=== PATIENT | female | born 1970 | race Caucasian/White ===

== ENCOUNTER 2019-10-22 19:14 | Emergency (ER) | payer BC ==
[2019-10-22] MEDS ORDERED: Propofol 200 MG/20 ML SDV IV ONE (19:15)
[2019-10-22] MEDS ORDERED: traMADol 50 MG Tab PO ONE (19:15)
--- NOTE | 2019-10-22 19:37 | EDM.PDOC ---
ED HPI GENERAL MEDICAL PROBLEM - General Chief Complaint: Upper Extremity Injury/Pain Stated Complaint: LEFT ARM IS BROKE Time Seen by Provider: 10/22/19 19:35 Source of Information: Reports: Patient, RN, RN Notes Reviewed History Limitations: Reports: No Limitations - History of Present Illness INITIAL COMMENTS - FREE TEXT/NARRATIVE: Patient presents to ER with complaint of left elbow pain. States she was helping load a boat on a trailer when she slipped on the [place] on the boat ramp injuring her left elbow. Patient states this happened just prior to arrival. Rates pain 12/08. Onset: Today, Sudden left elbow Pain Score (Numeric/FACES): 10 - Related Data Allergies Allergy/AdvReac Type Severity Reaction Status Date / Time No Known Allergies Allergy Verified 10/22/19 19:35 Home Meds: Home Meds . [Unable to Verify Home Med List] 10/22/19 [History] Review of Systems - Review of Systems Review Of Systems: Comprehensive ROS is negative, except as noted in HPI. ED EXAM, GENERAL - Physical Exam Exam: See Below Exam Limited By: No Limitations General Appearance: Alert, WD/WN, Moderate Distress Eye Exam: Bilateral Eye: EOMI, Normal Inspection Ears: Normal External Exam, Hearing Grossly Normal Nose: Normal Inspection Throat/Mouth: Normal Inspection, Normal Voice, No Airway Compromise Head: Atraumatic, Normocephalic Neck: Normal Inspection, Supple, Non-Tender, Full Range of Motion Respiratory/Chest: No Respiratory Distress, Lungs Clear, Normal Breath Sounds, No Accessory Muscle Use, Chest Non-Tender Cardiovascular: Normal Peripheral Pulses, Regular Rate, Rhythm, No Edema, No Gallop, No JVD, No Murmur, No Rub Peripheral Pulses: 2+: Radial (L), Radial (R) GI/Abdominal: Normal Bowel Sounds, Soft, Non-Tender (Female) Exam: Deferred Rectal (Female) Exam: Deferred Back Exam: Normal Inspection, Full Range of Motion, NT Extremities: Joint Swelling (left elbow), Arm Pain (left elbow), Limited Range of Motion (left elbow) Neurological: Alert, Oriented, CN II-XII Intact, Normal Cognition, Normal Gait, Normal Reflexes, No Motor/Sensory Deficits Psychiatric: Normal Affect, Normal Mood, Anxious, Tearful Skin Exam: Warm, Dry, Intact, Normal Color, No Rash, Ecchymosis (left elbow) Lymphatic: No Adenopathy ED TRAUMA EXTREMITY PROCEDURES - Joint Reduction Left Elbow Sedation: Conscious Sedation Pre-Procedure NV Status: Normal Post-Procedure NV Status: Normal Technique: Traction/Counter Traction Number of Attempts: 1 Post-Reduction Imaging: Completely Reduced, Acceptably Reduced Joint Reduction Complications: No - Splinting Left Upper Extremity Splint Site: Left arm Pre-Procedure NV Status: Normal Post-Procedure NV Status: Normal Splint Material: Fiberglass Splint Design: Volar Applied & Form Fitted By: Provider, Nurse Provider Post-Splint Application NV Check: NV Status Normal, Good Position Complications: No Course - Vital Signs Last Recorded V/S: Last Vital Signs Temp 97.3 F 10/22/19 19:27 Pulse 67 10/22/19 19:27 Resp 20 10/22/19 19:27 BP 98/75 10/22/19 19:27 Pulse Ox 100 10/22/19 19:27 - Orders/Labs/Meds Meds: Medications Discontinued Medications Generic Name Dose Route Start Last Admin Trade Name Jose PRN Reason Stop Dose Admin Fentanyl 50 mcg 10/22/19 19:53 Sublimaze IVPUSH 10/22/19 19:54 ONETIME ONE Hydromorphone HCl 0.5 mg 10/22/19 21:02 10/22/19 21:07 Dilaudid IVPUSH 10/22/19 21:03 0.5 mg ONETIME ONE Administration Hydromorphone HCl Confirm 10/22/19 21:04 Dilaudid Administered 10/22/19 21:05 Dose 0.5 mg .ROUTE .STK-MED ONE Morphine Sulfate 4 mg 10/22/19 19:55 10/22/19 20:03 Morphine IM 10/22/19 19:56 4 mg ONETIME ONE Administration Tramadol HCl Confirm 10/22/19 21:33 10/22/19 22:48 Ultram Administered 10/22/19 21:34 Not Given Dose 100 mg .ROUTE .STK-MED ONE - Radiology Interpretation Free Text/Narrative:: Left elbow xray: PROCEDURE INFORMATION: Exam: XR Left Elbow Exam date and time: 10/22/2019 8:13 PM Age: 49 years old Clinical indication: Other: Fall/pain; Additional info: Slipped, injured left elbow, deformity TECHNIQUE: Imaging protocol: XR Left elbow. Views: 1 or 2 views. COMPARISON: No relevant prior studies available. FINDINGS: Bones/joints: Complete posterior dislocation of radius and ulna from distal humerus. Some small bone fragments are seen in the olecranon on fossa region which may represent some minor chip or avulsion fractures. Soft tissues: Mild soft tissue swelling. IMPRESSION: 1. Complete dislocation posteriorly of the left radius and ulna from the humerus. 2. Several small calcified type fragments are seen along the olecranon fossa which may represent minor chip or avulsion fractures. 3. Mild soft tissue swelling. Thank you for allowing us to participate in the care of your patient. Dictated and Authenticated by: Agustin Edmonds MD 10/22/2019 8:26 PM Central Time ([place] & [place]) POSt Reduction left elbow xray: PROCEDURE INFORMATION: Exam: XR Left Elbow Exam date and time: 10/22/2019 9:39 PM Age: 49 years old Clinical indication: Other: Post reduction TECHNIQUE: Imaging protocol: XR Left elbow. Views: 1 or 2 views. COMPARISON: CR Elbow Min 3V Lt 10/22/2019 8:13 PM FINDINGS: Bones/joints: Post reduction lateral view showing what appears to be alignment of the ulna, radius, and distal humerus. There are some bone fragments seen anterior to the humerus and adjacent to the radial neck on the lateral view. The source for these fracture fragments is indeterminate based on this single view. Additional imaging of the elbow is recommended. Plain film ve rsus CT should be considered. Fat pad elevation consistent with mild hemarthrosis. Soft tissues: Soft tissue swelling. IMPRESSION: 1. Post reduction lateral view showing aligned ulna, radius, and distal humerus. 2. Small fracture fragments seen anteriorly adjacent to the radial neck and anterior to the humeral epicondyles. Source for the small fracture fragments is indeterminate based on this single view. Additional imaging of the elbow recommended. CT may be warranted versus additional plain films. 3. Soft tissue swelling and minor hemarthrosis. Thank you for allowing us to participate in the care of your patient. Dictated and Authenticated by: Agustin Edmonds MD 10/22/2019 9:51 PM Central Time ([place] & [place]) See rad report Departure - Departure Time of Disposition: 22:23 Disposition: Home, Self-Care 01 Condition: Fair Clinical Impression: Fragmented bone Dislocation, elbow, posterior Qualifiers: Encounter type: initial encounter Laterality: left Qualified Code(s): S53.125A - Posterior dislocation of left ulnohumeral joint, initial encounter - Discharge Information *PRESCRIPTION DRUG MONITORING PROGRAM REVIEWED*: No *COPY OF PRESCRIPTION DRUG MONITORING REPORT IN PATIENT JOANN: No Instructions: How To Use a Sling, [id number], Elbow Dislocation, [id number] Referrals: PCP,None [Primary Care Provider] - Forms: ED Department Discharge Additional Instructions: Follow-up with Ortho at [facility] in [facility] Call [facility] right away tomorrow morning to make an appointment with Ortho. Tell them you dislocated your elbow and were seen in the ER over the weekend and were to follow-up with Ortho. Take the CD with images with you May use Tylenol and/or ibuprofen as directed for pain Rx: Tramadol May use ice to the area as tolerated Use a pillow under the arm as tolerated Sepsis Event Note (ED) - Evaluation Sepsis Screening Result: No Definite Risk - Focused Exam Vital Signs: Vital Signs Temp Pulse Resp BP Pulse Ox 10/22/19 19:27 97.3 F 67 20 98/75 100
[2019-10-22] MEDS ORDERED: fentaNYL 100 MCG/2 ML SDV IVPUSH ONE (19:53)
[2019-10-22] MEDS ORDERED: Morphine 2 MG/ML SYRINGE IM ONE (19:55)
--- NOTE | 2019-10-22 20:27 | CR ---
PROCEDURE INFORMATION: Exam: XR Left Elbow Exam date and time: 10/22/2019 8:13 PM Age: 49 years old Clinical indication: Other: Fall/pain; Additional info: Slipped, injured left elbow, deformity TECHNIQUE: Imaging protocol: XR Left elbow. Views: 1 or 2 views. COMPARISON: No relevant prior studies available. FINDINGS: Bones/joints: Complete posterior dislocation of radius and ulna from distal humerus. Some small bone fragments are seen in the olecranon on fossa region which may represent some minor chip or avulsion fractures. Soft tissues: Mild soft tissue swelling. IMPRESSION: 1. Complete dislocation posteriorly of the left radius and ulna from the humerus. 2. Several small calcified type fragments are seen along the olecranon fossa which may represent minor chip or avulsion fractures. 3. Mild soft tissue swelling.
[2019-10-22] MEDS ORDERED: HYDROmorphone 0.5 MG/0.5 ML Syringe IVPUSH ONE (21:02)
[2019-10-22] MEDS ORDERED: HYDROmorphone 0.5 MG/0.5 ML Syringe ONE (21:04)
[2019-10-22] MEDS ORDERED: traMADol 50 MG Tab ONE (21:33)
--- NOTE | 2019-10-22 21:51 | CR ---
PROCEDURE INFORMATION: Exam: XR Left Elbow Exam date and time: 10/22/2019 9:39 PM Age: 49 years old Clinical indication: Other: Post reduction TECHNIQUE: Imaging protocol: XR Left elbow. Views: 1 or 2 views. COMPARISON: CR Elbow Min 3V Lt 10/22/2019 8:13 PM FINDINGS: Bones/joints: Post reduction lateral view showing what appears to be alignment of the ulna, radius, and distal humerus. There are some bone fragments seen anterior to the humerus and adjacent to the radial neck on the lateral view. The source for these fracture fragments is indeterminate based on this single view. Additional imaging of the elbow is recommended. Plain film versus CT should be considered. Fat pad elevation consistent with mild hemarthrosis. Soft tissues: Soft tissue swelling. IMPRESSION: 1. Post reduction lateral view showing aligned ulna, radius, and distal humerus. 2. Small fracture fragments seen anteriorly adjacent to the radial neck and anterior to the humeral epicondyles. Source for the small fracture fragments is indeterminate based on this single view. Additional imaging of the elbow recommended. CT may be warranted versus additional plain films. 3. Soft tissue swelling and minor hemarthrosis.
== END 2019-10-22 22:40 | disposition home or self-care (01) ==
LOC: DL.ED 19:14
DX: S53.125A Posterior dislocation of left ulnohumeral joint, initial encounter (principal); X50.9XXA Other and unspecified overexertion or strenuous movements or postures, initial encounter
CPT/HCPCS: 24605; 73070; 96372; 96374; 99283; A9270; J1170; J2270; J2704